=== PATIENT | male | born 1950 | race Caucasian/White ===

== ENCOUNTER → 2018-04-09 10:54 | Outpatient (CLI) | payer MEDICARE, OTHER, SELFPAY | PROVIDERS: Family Provider Physician Assistant; PCP Physician Assistant; Visit Provider Physician Assistant | DX: N30.91 Cystitis, unspecified with hematuria (principal) | CPT/HCPCS: 87086 ==

== ENCOUNTER 2018-06-16 12:24 | Emergency (ER) | payer MEDICARE, OTHER, SELFPAY ==
--- NOTE | 2018-06-16 | DI.RAD.S_ITS ---
PROCEDURE: XR CHEST 1V INDICATIONS: Post Thoracentesis TECHNIQUE: One view of the chest was acquired. COMPARISON: [facility], CR, XR CHEST 2V, 06/16/2018, 12:37. FINDINGS: Surgical changes and devices: Partially visualized bilateral ureteral stents. Lungs and pleura: There is moderate residual left pleural effusion with adjacent atelectasis. Blunting of the right costophrenic angle. Elsewhere in the right lung, no focal consolidation Mediastinum: Mediastinal contours appear normal. Heart size is normal. Bones and chest wall: No suspicious bony lesions. Overlying soft tissues appear unremarkable. IMPRESSION: Moderate residual left pleural effusion. No pneumothorax. Scattered atelectasis. Dictated by: Lloyd Sexton M.D. on 06/16/2018 at 17:50 Approved by: Lloyd Sexton M.D. on 06/16/2018 at 17:52
[2018-06-16 12:26] VITALS: BP 114/70; PULSE 119; RESP 16; TEMP 36.2; O2SAT 93
--- NOTE | 2018-06-16 12:35 | DI.RAD.S_ITS ---
PROCEDURE: XR CHEST 2V INDICATIONS: shortness of breath TECHNIQUE: 2 views of the chest were acquired. COMPARISON: None. FINDINGS: Surgical changes and devices: None. Lungs and pleura: There is a large left pleural effusion. Only the superior aspect of the left lung is aerated. The right lung is clear. Mediastinum: Mediastinal contours are normal. Heart size is normal. Bones and chest wall: No suspicious bony abnormalities. Soft tissues appear unremarkable. IMPRESSION: Large left pleural effusion. Please note, given the patient's history of repeat thoracentesis, Pleurx catheter may be helpful for the patient. This can be scheduled with interventional radiology at [facility] through the diagnostic radiology scheduling line. Dictated by: Padmini Gutierrez M.D. on 06/16/2018 at 12:56 Approved by: Padmini Gutierrez M.D. on 06/16/2018 at 12:57
[2018-06-16 13:43] VITALS: PULSE 122; O2SAT 98
[2018-06-16 14:41] VITALS: BP 137/93
[2018-06-16 15:12] VITALS: BP 110/66; PULSE 111; RESP 15; O2SAT 97
[2018-06-16 15:26] LABS: Add Manual Diff / Slide Review YES; Hematocrit 29.4 % (41-53); Hemoglobin 9.8 g/dL (13.5-17.5); Mean Corpuscular HGB Conc 33.4 % (30-36); Mean Corpuscular Hemoglobin 30.6 PG (26-34); Mean Corpuscular Volume 91.5 fL (80-100); Platelet Count 198 X10^3/uL (150-400); Red Blood Cell Count 3.22 X10^6/uL (4.5-5.9); Red Cell Distribution Width 19.8 % (11.6-14.8); White Blood Cell Count 9.6 X10^3/uL (4.5-11.0)
--- NOTE | 2018-06-16 15:26 | ED.SOB ---
HPI - SOB/Dyspnea General Chief Complaint: Shortness of Breath/Dyspnea Stated Complaint: SHORT OF BREATH Time Seen by Provider: 06/16/18 15:25 Source: patient, family and old records reviewed Mode of arrival: ambulatory Limitations: no limitations History of Present Illness This is a 67-year-old male with known prostate cancer with recurrent pleural effusion patient states that he gets majority of his care through [facility]. Patient has had increasing shortness of breath. He has had thoracentesis 3 or 4 times in the past several months with about 2 or 3 L drained each time and then slow recurrence. Patient denies any fevers. He denies any chest pain or pressure. Denies any abdominal pain. Denies any nausea or vomiting or other GI or urinary symptoms at this time. 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 Patient states he is following with Infectious Disease for this through [facility]. He is taking Zytiga for his cancer. Patient states his shortness of breath has been slowly worsening today was enough that he came in. He actually called to try to make an appointment but they were unable cm until about a week from now. Related Data Home Medications Medication Instructions Recorded Confirmed Honvan 120 mg PO .COMPLEX 04/09/18 06/16/18 abiraterone [Zytiga] 1,000 mg PO DAILY 06/16/18 06/16/18 atorvastatin 80 mg PO BEDTIME 06/16/18 06/16/18 doxycycline monohydrate 100 mg PO DAILY 06/16/18 06/16/18 metformin 500 mg PO BID 06/16/18 06/16/18 oxycodone 5 - 10 mg PO Q4-6H PRN 06/16/18 06/16/18 oxycodone-acetaminophen 1 - 2 tab PO Q4-6H PRN 06/16/18 06/16/18 posaconazole [Noxafil] 100 mg PO TID 06/16/18 06/16/18 prednisone 5 mg PO BID 06/16/18 06/16/18 sennosides-docusate sodium 1 tab PO BID 06/16/18 06/16/18 [Senna-S] tamsulosin 0.4 mg PO DAILY 06/16/18 06/16/18 zolpidem 5 - 10 mg PO BEDTIME PRN 06/16/18 06/16/18 Allergies Allergy/AdvReac Type Severity Reaction Status Date / Time No Known Drug Allergies Allergy Verified 04/09/18 10:42 Review of Systems Review of Systems ROS Unobtainable: All systems reviewed & are unremarkable except as noted in HPI and below Constitutional Denies chills, Reports fatigue, Denies fever(s), Denies lethargy, Reports malaise and Denies weakness Cardiovascular Denies chest pain, Denies irregular heart rhythm, Denies lightheadedness, Denies palpitations, Reports dyspnea, Reports dyspnea on exertion and Denies orthopnea Respiratory Denies system reviewed and no additional complaints, except as docu, Denies chest congestion, Denies cough, Denies pain on inspiration, Denies pain with cough, Reports dyspnea, Reports dyspnea on exertion, Denies stridor and Denies wheezing Gastrointestinal Gastrointestinal: Denies abdominal pain, Denies change in bowel habits, Denies diarrhea, Denies nausea and Denies vomiting Genitourinary Denies hematuria, Denies flank pain, Denies urinary incontinence and Denies urinary urgency Musculoskeletal Reports back pain Neurologic Denies weakness Endocrine Reports fatigue and Denies palpitations Allergic/Immunologic Denies wheezing PFSH Medical History Prostate cancer (Acute) Surgical History S/P ureteral stent placement (Acute) Social History Smoking Status: Never smoker Social History Smoking Status: Never smoker Exam Narrative Exam Narrative: GENERAL: Alert and oriented x three, thin, cachectic-appearing male in moderate distress. HEENT: Head normocephalic, atraumatic, EOMI, pupils reactive, face symmetric, moist mucous membranes NECK: Supple, full range of motion CARDIOVASCULAR: Regular rate and rhythm without murmurs, rubs or gallops. RESPIRATORY: Breath sounds are decreased on the left from the apical area to the base, no wheezes rales or rhonchi. Patient speaks in 3-4 word sentences and is tachypneic with any sort of movement. ABDOMEN: Soft, nontender. Normoactive bowel sounds all 4 quadrants. No guarding or rebound, rigidity, no mass : No CVA tenderness EXTREMITIES: Normal range of motion, no clubbing or edema. Neurovascularly intact NEUROLOGICAL: Cranial nerves II through XII grossly intact. Moving all extremities SKIN: Warm, dry, no petechiae, no rashes or lesions. Initial Vital Signs Initial Vital Signs: Vital Signs Temperature 97.1 F L 06/16/18 12:26 Pulse Rate 119 H 06/16/18 12:26 Respiratory Rate 16 06/16/18 12:26 Blood Pressure 114/70 06/16/18 12:26 Pulse Oximetry 93 06/16/18 12:26 Course Orders Ordered: ED Orders 06/16/18 12:35 Chest [XR chest 2V] Stat 06/16/18 15:00 Complete Blood Count AUTO DIFF Stat Comprehensive Metabolic Panel Stat 06/16/18 15:25 Partial Thromboplastin Time Stat Prothrombin Time INR Stat 06/16/18 15:41 US thoracentesis Stat Vital Signs - 8 hr 06/16/18 12:26 06/16/18 13:43 06/16/18 14:41 Temperature 97.1 F L Pulse Rate 119 H 122 H Respiratory Rate 16 Blood Pressure 114/70 Blood Pressure [Left Arm] 137/93 H Pulse Oximetry 93 98 06/16/18 15:12 06/16/18 18:03 Temperature Pulse Rate 111 H 101 H Respiratory Rate 15 18 Blood Pressure 127/70 Blood Pressure [Left Arm] 110/66 Pulse Oximetry 97 95 MDM - SOB/Dyspnea Lab Data Result diagrams: 06/16/18 15:00 06/16/18 15:00 Lab Results 06/16/18 06/16/18 06/16/18 Range/Units 15:00 15:00 15:25 WBC 9.6 (4.5-11.0) X10^3/uL RBC 3.22 L (4.5-5.9) X10^6/uL Hgb 9.8 L (13.5-17.5) g/dL Hct 29.4 L (41-53) % MCV 91.5 (80-100) fL MCH 30.6 (26-34) PG MCHC 33.4 (30-36) % RDW 19.8 H (11.6-14.8) % Plt Count 198 (150-400) X10^3/uL Neut % (Auto) Not Reportable Lymph % (Auto) Not Reportable [place] % (Auto) Not Reportable Eos % (Auto) Not Reportable Baso % (Auto) Not Reportable Lymph # (Auto) Not Reportable [place] # (Auto) Not Reportable Baso # (Auto) Not Reportable Total Counted 100 Seg Neutrophils % 51.0 (38-70) % Band Neutrophils % 3.0 (3-7) % Lymphocytes % (Manual) 35.0 (25-45) % Atypical Lymphs % 4.0 H ( - 0) % Monocytes % (Manual) 6.0 (2-11) % Basophils % (Manual) 1.0 (0-1) % Neutrophils # (Manual) 5184 ([id number]) /uL Nucleated RBCs 3 H ( - 0) #/Diff RBC Morphology See below Polychromasia 2+ H Poikilocytosis 1+ H Anisocytosis 2+ H PT 11.6 (10.1-12.7) SECONDS INR 1.0 (0.9-1.3) APTT 27 (26.4-36.2) SECONDS Sodium 134 L (137-145) mmol/L Potassium 4.2 (3.4-5.1) mmol/L Chloride 104 (98-107) mmol/L Carbon Dioxide 21 L (22-32) mmol/L BUN 30 H (9-20) mg/dL Creatinine 1.00 (0.66-1.25) mg/dL Estimated GFR > 60.0 (>60) mL/min BUN/Creatinine Ratio 30.0 H (6-22) Glucose 114 H (80-110) mg/dL Calcium 8.4 (8.4-10.2) mg/dL Total Bilirubin 0.6 (0.2-1.3) mg/dL AST 58 (17-59) IU/L ALT 24 (21-72) IU/L Alkaline Phosphatase 245 H (38-126) U/L Total Protein 6.9 (6.3-8.2) g/dL Albumin 3.3 L (3.5-5.0) g/dL Globulin 3.6 (1.7-4.1) g/dL Albumin/Globulin Ratio 0.9 L (1.0-2.8) Imaging Data Chest x-ray: My impression: [address] [address] XRay Report Signed Patient: Elias Berg FMR#: [id number] : 1950Acct:[id number] Age/Sex: 67 / MDate of Service: 06/16/18 Loc: ED Accession Number: [id number] Procedure: XR chest 1V Ordering Provider: Elle Kwan D.O. PROCEDURE: XR CHEST 1V INDICATIONS: Post Thoracentesis TECHNIQUE: One view of the chest was acquired. COMPARISON: [facility], , XR CHEST 2V, 06/16/2018, 12:37. FINDINGS: Surgical changes and devices: Partially visualized bilateral ureteral stents. Lungs and pleura: There is moderate residual left pleural effusion with adjacent atelectasis. Blunting of the right costophrenic angle. Elsewhere in the right lung, no focal consolidation Mediastinum: Mediastinal contours appear normal. Heart size is normal. Bones and chest wall: No suspicious bony lesions. Overlying soft tissues appear unremarkable. IMPRESSION: Moderate residual left pleural effusion. No pneumothorax. Scattered atelectasis. Dictated by: Lloyd Sexton M.D. on 06/16/2018 at 17:50 Approved by: Lloyd Sexton M.D. on 06/16/2018 at 17:52 Radiologist's impression: [place] [address] XRay Report Signed Patient: Elias Berg FMR#: [id number] : 1950Acct:[id number] Age/Sex: 67 / MDate of Service: 06/16/18 Loc: ED Accession Number: [id number] Procedure: XR chest 2V Ordering Provider: Elle Kwan D.O. PROCEDURE: XR CHEST 2V INDICATIONS: shortness of breath TECHNIQUE: 2 views of the chest were acquired. COMPARISON: None. FINDINGS: Surgical changes and devices: None. Lungs and pleura: There is a large left pleural effusion. Only the superior aspect of the left lung is aerated. The right lung is clear. Mediastinum: Mediastinal contours are normal. Heart size is normal. Bones and chest wall: No suspicious bony abnormalities. Soft tissues appear unremarkable. IMPRESSION: Large left pleural effusion. Please note, given the patient's history of repeat thoracentesis, Pleurx catheter may be helpful for the patient. This can be scheduled with interventional radiology at [facility] through the diagnostic radiology scheduling line. Dictated by: Padmini Gutierrez M.D. on 06/16/2018 at 12:56 Approved by: Padmini Gutierrez M.D. on 06/16/2018 at 12:57 US guided thoracentesis: Radiologist's impression: [address] [address] Ultrasound Report Signed Patient: Elias Berg FMR#: [id number] : 1950Acct:[id number] Age/Sex: 67 / MDate of Service: 06/16/18 Loc: ED Accession Number: [id number] Procedure: US thoracentesis Ordering Provider: Elle Kwan D.O. PROCEDURE: US THORACENTESIS INDICATIONS: LEFT PLEURAL EFFUSION, SOB, PROSTATE CA TECHNIQUE: The indications, alternatives, benefits, risks, and complications of the procedure were explained to the patient. Written informed consent was obtained and placed in the chart. The chest was examined sonographically, and an appropriate site was chosen for thoracentesis. The skin was prepared and draped in the usual sterile fashion, and 1% lidocaine was infiltrated from the skin down through the pleural surface. A 19-gauge catheter-covered needle was then introduced into the pleural space, the catheter was advanced and the needle was withdrawn, and thereafter pleural fluid was aspirated. The catheter was then removed and a dressing was applied. COMPARISON: None. FINDINGS: Access site: Left hemithorax. Needle: One-Step centesis catheter with introducer needle. Fluid volume and description: 2000 cc of serous fluid Fluid sent for diagnostic testing: Not requested Medications: 1% lidocaine for local anaesthesia. Complications: None; post-procedural chest radiograph is pending to assess for pneumothorax. IMPRESSION: Successful ultrasound-guided thoracentesis. Dictated by: Lloyd Sexton M.D. on 06/16/2018 at 17:53 Approved by: Lloyd Sxeton M.D. on 06/16/2018 at 17:53 [facility] Narrative Medical decision making narrative: Spoke with Dr. Sexton who is available for ultrasound-guided thoracentesis. Patient is very familiar with the procedure. Afterwards chest x-ray was obtained and shows improvement although continued large pleural effusion. Patient does not show signs of pneumothorax. Patient is improved his breathing and comfortable returning home at this time. Dr. Gutierrez from Radiology did mention PleurX catheter may be helpful for this patient and was expressed to him as an option and likely available through [facility]. Discharge Plan Departure Patient Disposition: Home Clinical Impression: Pleural effusion Discharge Date/Time: 06/16/18 18:04 Interventions: ED Discharge Assessment Last Done: 06/16/18 18:03 Instructions: DI for Thoracentesis Activity Restrictions/Additional Instructions: Follow up with your physician at [facility] for recheck. Call for an appointment if you do not have one this week. Continue your home medications as prescribed. I recommend that you follow up and discuss with your providers about a pleurx catheter, or a catheter that constantly drains the lung. This may be an option, either through at [facility] or possibly through [facility]. Return to the ER for fevers greater than 100.4, new shortness of breath, passing out, new chest pain or pressure, persistent vomiting or other new or concerning symptoms. Prescriptions: No Action Honvan tablet 120 mg PO .COMPLEX RF: 0 atorvastatin 40 mg tablet 80 mg PO BEDTIME RF: 0 metformin 500 mg tablet 500 mg PO BID RF: 0 doxycycline monohydrate 100 mg tablet 100 mg PO DAILY RF: 0 Noxafil 100 mg tablet,delayed release (DR/EC) 100 mg PO TID RF: 0 sennosides-docusate sodium [Senna-S] 8.6-50 mg tablet 1 tab PO BID RF: 0 prednisone 5 mg tablet 5 mg PO BID RF: 0 oxycodone-acetaminophen 5-325 mg tablet 1 - 2 tab PO Q4-6H PRN (Reason: pain) RF: 0 tamsulosin 0.4 mg capsule 0.4 mg PO DAILY RF: 0 zolpidem 10 mg tablet 5 - 10 mg PO BEDTIME PRN (Reason: Insomnia) RF: 0 oxycodone 5 mg tablet 5 - 10 mg PO Q4-6H PRN (Reason: pain) RF: 0 abiraterone [Zytiga] 250 mg tablet 1,000 mg PO DAILY RF: 0 Referrals: Juanita Garza PA-C [Primary Care Provider] -
[2018-06-16 15:31] LABS: Alanine Aminotransferase 24 IU/L (21-72); Albumin 3.3 g/dL (3.5-5.0); Albumin Globulin Ratio 0.9 (1.0-2.8); Alkaline Phosphatase 245 U/L (38-126); Aspartate Aminotransferase 58 IU/L (17-59); Bilirubin Total 0.6 mg/dL (0.2-1.3); Blood Urea Nitrogen 30 mg/dL (9-20); Calcium 8.4 mg/dL (8.4-10.2); Carbon Dioxide 21 mmol/L (22-32); Chloride 104 mmol/L (98-107); Estimated Glomerular Filt Rate > 60.0 mL/min (>60); Globulin 3.6 g/dL (1.7-4.1); Glucose 114 mg/dL (80-110); HEMOLYSIS < 15 (0-50); Potassium 4.2 mmol/L (3.4-5.1); Sodium 134 mmol/L (137-145); Total Protein 6.9 g/dL (6.3-8.2)
[2018-06-16 15:34] LABS: Neutrophils Absolute Manual 5184 /uL (3000-5900); Nucleated Red Blood Cells 3 #/Diff; Total Cells Counted 100
[2018-06-16 15:36] LABS: Anisocytosis 2+; Poikilocytosis 1+; Polychromasia 2+
[2018-06-16 15:41] LABS: Prothrombin Time 11.6 SECONDS (10.1-12.7)
--- NOTE | 2018-06-16 15:41 | DI.US.S_ITS ---
PROCEDURE: US THORACENTESIS INDICATIONS: LEFT PLEURAL EFFUSION, SOB, PROSTATE CA TECHNIQUE: The indications, alternatives, benefits, risks, and complications of the procedure were explained to the patient. Written informed consent was obtained and placed in the chart. The chest was examined sonographically, and an appropriate site was chosen for thoracentesis. The skin was prepared and draped in the usual sterile fashion, and 1% lidocaine was infiltrated from the skin down through the pleural surface. A 19-gauge catheter-covered needle was then introduced into the pleural space, the catheter was advanced and the needle was withdrawn, and thereafter pleural fluid was aspirated. The catheter was then removed and a dressing was applied. COMPARISON: None. FINDINGS: Access site: Left hemithorax. Needle: One-Step centesis catheter with introducer needle. Fluid volume and description: 2000 cc of serous fluid Fluid sent for diagnostic testing: Not requested Medications: 1% lidocaine for local anaesthesia. Complications: None; post-procedural chest radiograph is pending to assess for pneumothorax. IMPRESSION: Successful ultrasound-guided thoracentesis. Dictated by: Lloyd Sexton M.D. on 06/16/2018 at 17:53 Approved by: Lloyd Sexton M.D. on 06/16/2018 at 17:53
[2018-06-16 15:44] LABS: PTT Partial Thromboplastin Tim 27 SECONDS (26.4-36.2)
[2018-06-16 18:03] VITALS: BP 127/70; PULSE 101; RESP 18; O2SAT 95
== END 2018-06-16 18:04 | disposition home or self-care (01) ==
PROVIDERS: Emergency Provider Emergency Medicine; Family Provider Physician Assistant; PCP Physician Assistant
DX: J90 Pleural effusion, not elsewhere classified (principal)
CPT/HCPCS: 32555; 36415; 36591; 71045; 71046; 80053; 85025; 85610; 85730; 99283; 99284

== ENCOUNTER 2018-06-22 12:53 | Emergency (ER) | payer MEDICARE, OTHER, SELFPAY ==
--- NOTE | 2018-06-22 | DI.RAD.S_ITS ---
PROCEDURE: XR CHEST 1V INDICATIONS: POST THORACENTESIS TECHNIQUE: One view of the chest was acquired. COMPARISON: [facility], CR, XR CHEST 2V, 06/22/2018, 14:30. FINDINGS: Surgical changes and devices: None. Lungs and pleura: Moderate left basilar airspace opacity. Increased, moderate right basilar airspace opacity. No pneumothorax. Decreased, moderate left pleural effusion. Mediastinum: Mediastinal contours appear normal. Heart size is normal. Bones and chest wall: No suspicious bony lesions. Overlying soft tissues appear unremarkable. IMPRESSION: 1. No complication following left-sided thoracentesis. 2. Bibasilar pneumonia. Continued plain film surveillance is recommended to ensure resolution, and to exclude underlying or central malignancy. Dictated by: Yolanda Bronson M.D. on 06/22/2018 at 16:15 Approved by: Yolanda Bronson M.D. on 06/22/2018 at 16:16
[2018-06-22 13:01] VITALS: BP 123/75; PULSE 117; RESP 20; TEMP 36.6; O2SAT 96
--- NOTE | 2018-06-22 14:26 | DI.RAD.S_ITS ---
PROCEDURE: XR CHEST 2V INDICATIONS: shortness of breath TECHNIQUE: 2 views of the chest were acquired. COMPARISON: [facility], CR, XR CHEST 1V, 06/16/2018, 17:39. FINDINGS: Surgical changes and devices: None. Lungs and pleura: Moderate left-sided pleural effusion and left lung atelectasis/infiltrate is seen. No gross pneumothorax. Right lung is clear. Mediastinum: Mediastinal contours are normal. Heart size is normal. Bones and chest wall: No suspicious bony abnormalities. Soft tissues appear unremarkable. IMPRESSION: Moderate left pleural effusion and left lung infiltrate/atelectasis, increased since previous study. No gross pneumothorax. Dictated by: Jesse Aguila M.D. on 06/22/2018 at 15:06 Approved by: Jesse Aguila M.D. on 06/22/2018 at 15:07
[2018-06-22 14:39] LABS: Add Manual Diff / Slide Review NO; Basophils Absolute Auto 100 /uL (0-100); Basophils Percent Auto 1.5 % (0-2); Eosinophils Absolute Auto 0 /uL (0-450); Eosinophils Percent Auto 0.3 % (2-4); Hematocrit 26.3 % (41-53); Hemoglobin 8.9 g/dL (13.5-17.5); Lymphocytes Absolute Auto 1900 /uL (1100-4500); Lymphocytes Percent Auto 21.1 % (25-40); Mean Corpuscular HGB Conc 33.8 % (30-36); Mean Corpuscular Hemoglobin 31.4 PG (26-34); Mean Corpuscular Volume 92.8 fL (80-100); Monocytes Absolute Auto 400 /uL (0-900); Monocytes Percent Auto 4.1 % (3-14); Neutrophils Absolute Auto 6500 /uL (1500-7000); Platelet Count 171 X10^3/uL (150-400); Red Blood Cell Count 2.83 X10^6/uL (4.5-5.9); Red Cell Distribution Width 20.4 % (11.6-14.8); White Blood Cell Count 8.9 X10^3/uL (4.5-11.0)
[2018-06-22 14:47] LABS: Alanine Aminotransferase 25 IU/L (21-72); Albumin Globulin Ratio 0.9 (1.0-2.8); Alkaline Phosphatase 297 U/L (38-126); Anisocytosis 2+; Aspartate Aminotransferase 44 IU/L (17-59); Bilirubin Total 0.5 mg/dL (0.2-1.3); Blood Urea Nitrogen 27 mg/dL (9-20); Calcium 8.1 mg/dL (8.4-10.2); Carbon Dioxide 21 mmol/L (22-32); Chloride 105 mmol/L (98-107); Estimated Glomerular Filt Rate > 60.0 mL/min (>60); Globulin 3.4 g/dL (1.7-4.1); Glucose 116 mg/dL (80-110); HEMOLYSIS < 15 (0-50); Lactate (Lactic Acid) 1.3 mmol/L (0.7-2.1); Poikilocytosis 1+; Potassium 4.1 mmol/L (3.4-5.1); Sodium 133 mmol/L (137-145); Total Protein 6.4 g/dL (6.3-8.2)
--- NOTE | 2018-06-22 14:51 | ED.SOB ---
HPI - SOB/Dyspnea General Chief Complaint: Shortness of Breath/Dyspnea Stated Complaint: DIFFICULTY BREATHING Time Seen by Provider: 06/22/18 14:50 Source: patient and family Mode of arrival: wheelchair Limitations: no limitations History of Present Illness 67-year-old male nonsmoker with history of prostate cancer and large left-sided pleural effusion presents with multiple family members and a chief complaint of significant shortness of breath and the suspicion that his effusion has returned. He has increasing frequency of thoracentesis with the last 1 being on Tuesday. He denies fever or chills nor productive cough but increasing shortness of breath with any exertion. he is not dizzy but he is a bit weak and lightheaded. MD Complaint: shortness of breath Onset (ago): day(s) Severity: severe Consistency/Duration: constant Relieving factors: nothing Exacerbating factors: lying flat and exertion Associated symptoms: denies other symptoms Treatment prior to arrival: none Related Data Home Medications Medication Instructions Recorded Confirmed Honvan 120 mg PO .COMPLEX 04/09/18 06/22/18 abiraterone [Zytiga] 1,000 mg PO DAILY 06/16/18 06/22/18 doxycycline monohydrate 100 mg PO DAILY 06/16/18 06/22/18 posaconazole [Noxafil] 100 mg PO TID 06/16/18 06/22/18 prednisone 10 mg PO DAILY 06/16/18 06/22/18 sennosides-docusate sodium 1 tab PO BID 06/16/18 06/22/18 [Senna-S] tamsulosin 0.4 mg PO DAILY 06/16/18 06/22/18 morphine 15 mg PO BID PRN 06/22/18 06/22/18 Previous Rx's Medication Instructions Recorded amoxicillin-pot clavulanate 1 tab PO BID #20 tab 06/22/18 [Augmentin] Allergies Allergy/AdvReac Type Severity Reaction Status Date / Time No Known Drug Allergies Allergy Verified 06/22/18 13:01 Review of Systems Constitutional Denies chills, Reports fatigue, Denies fever(s), Denies lethargy, Reports poor appetite and Reports weakness Eyes Denies change in vision, Denies eye discharge, Denies irritation and Denies loss of vision ENT Ears, Nose, Mouth, and Throat: Denies change in voice, Denies neck pain and Denies sore throat Cardiovascular Denies chest pain, Denies irregular heart rhythm, Denies lightheadedness, Denies palpitations, Reports dyspnea, Reports dyspnea on exertion and Denies orthopnea Respiratory Denies cough, Reports dyspnea, Reports dyspnea on exertion and Denies wheezing Gastrointestinal Gastrointestinal: Denies abdominal pain, Denies change in bowel habits, Denies diarrhea, Denies nausea and Denies vomiting Genitourinary Denies hematuria, Denies flank pain, Denies urinary incontinence and Denies urinary urgency Musculoskeletal Denies neck pain Integumentary/Breasts Denies pruritus, Denies erythema, Denies rash and Denies wounds Neurologic Denies confusion, Denies loss of vision and Reports weakness Psychiatric Denies anxiety, Denies confusion, Denies depression, Denies homicidal ideation and Denies suicidal ideation Endocrine Reports fatigue and Denies palpitations Hematologic/Lymphatic Denies easy bruising Allergic/Immunologic Denies wheezing PFSH Medical History Prostate cancer (Acute) Surgical History S/P ureteral stent placement (Acute) Social History Smoking Status: Never smoker Social History Smoking Status: Never smoker Exam Narrative Exam Narrative: GENERAL: 59-year-old male, appears older than stated age, chronically ill and in acute distress HEAD: Atraumatic. Normocephalic. No temporal or scalp tenderness. temporal wasting EYES: Pupils equal round and reactive. Extraocular motions intact. No scleral icterus. No injection or drainage. ENT: Nose without bleeding, purulent drainage or septal hematoma. Throat without erythema, tonsillar hypertrophy or exudate. Uvula midline. Airway patent. NECK: Trachea midline. No JVD or lymphadenopathy. Supple, nontender, no meningeal signs. CARDIOVASCULAR: Regular rate and rhythm without murmurs, gallops, or rubs. RESPIRATORY: decreased breath sounds to left mid lung GASTROINTESTINAL: Abdomen soft, non-tender, nondistended. No hepato-splenomegaly, or palpable masses. No guarding. EXTREMITIES: No clubbing, cyanosis, or edema. No joint tenderness, effusion, or edema noted. BACK: Nontender without deformity or crepitance. No flank tenderness. NEURO: AOx3. SKIN: No rash or erythema. Initial Vital Signs Initial Vital Signs: Vital Signs Temperature 97.8 F 06/22/18 13:01 Pulse Rate 117 H 06/22/18 13:01 Respiratory Rate 20 06/22/18 13:01 Blood Pressure 123/75 06/22/18 13:01 Pulse Oximetry 96 06/22/18 13:01 Course Orders Ordered: ED Orders 06/22/18 14:26 Consult to Respiratory Therapy Evaluate & Treat XR chest 2V Stat EKG-12 Lead Stat 06/22/18 14:29 Complete Blood Count AUTO DIFF Stat Comprehensive Metabolic Panel Stat Lactate (Lactic Acid) Stat 06/22/18 14:58 US thoracentesis Stat Reevaluation(s) Reevaluation #1: patient feels near complete resolution of symptoms upon return from radiology. Repeat chest x-ray confirms no pneumothorax or other complication of the procedure Vital Signs - 8 hr 06/22/18 13:01 06/22/18 15:00 06/22/18 16:05 Temperature 97.8 F Pulse Rate 117 H 90 102 H Respiratory Rate 20 22 22 Blood Pressure 123/75 Blood Pressure [Left Arm] 130/69 130/69 Pulse Oximetry 96 95 95 06/22/18 17:15 06/22/18 18:00 Temperature Pulse Rate 98 H 93 H Respiratory Rate 20 20 Blood Pressure Blood Pressure [Left Arm] 128/64 138/63 Pulse Oximetry 98 95 MDM - SOB/Dyspnea Medical Records Attestation: I reviewed the patient's medical records. Lab Data Attestation: I reviewed the patient's lab results. Result diagrams: 06/22/18 14:29 06/22/18 14:29 Lab Results 06/22/18 06/22/18 06/22/18 Range/Units 14:29 14:29 14:29 WBC 8.9 (4.5-11.0) X10^3/uL RBC 2.83 L (4.5-5.9) X10^6/uL Hgb 8.9 L (13.5-17.5) g/dL Hct 26.3 L (41-53) % MCV 92.8 (80-100) fL MCH 31.4 (26-34) PG MCHC 33.8 (30-36) % RDW 20.4 H (11.6-14.8) % Plt Count 171 (150-400) X10^3/uL Neut % (Auto) 73.0 (50-75) % Lymph % (Auto) 21.1 L (25-40) % Bracken % (Auto) 4.1 (3-14) % Eos % (Auto) 0.3 L (2-4) % Baso % (Auto) 1.5 (0-2) % Neut # (Auto) 6500 (3730-0141) /uL Lymph # (Auto) 1900 (7639-5910) /uL Bracken # (Auto) 400 (0-900) /uL Eos # (Auto) 0 (0-450) /uL Baso # (Auto) 100 (0-100) /uL RBC Morphology Not Reportable Poikilocytosis 1+ H Anisocytosis 2+ H Sodium 133 L (137-145) mmol/L Potassium 4.1 (3.4-5.1) mmol/L Chloride 105 (98-107) mmol/L Carbon Dioxide 21 L (22-32) mmol/L BUN 27 H (9-20) mg/dL Creatinine 0.90 (0.66-1.25) mg/dL Estimated GFR > 60.0 (>60) mL/min BUN/Creatinine Ratio 30.0 H (6-22) Glucose 116 H (80-110) mg/dL Lactate 1.3 (0.7-2.1) mmol/L Calcium 8.1 L (8.4-10.2) mg/dL Total Bilirubin 0.5 (0.2-1.3) mg/dL AST 44 (17-59) IU/L ALT 25 (21-72) IU/L Alkaline Phosphatase 297 H (38-126) U/L Total Protein 6.4 (6.3-8.2) g/dL Albumin 3.0 L (3.5-5.0) g/dL Globulin 3.4 (1.7-4.1) g/dL Albumin/Globulin Ratio 0.9 L (1.0-2.8) Imaging Data Chest x-ray: Radiologist's impression: [address] [address] XRay Report Signed Patient: Elias Berg FMR#: [id number] : 1950Acct:[id number] Age/Sex: 67 / MDate of Service: 06/22/18 Loc: ED Accession Number: [id number] Procedure: XR chest 2V Ordering Provider: Kg Mcgee D.O. PROCEDURE: XR CHEST 2V INDICATIONS: shortness of breath TECHNIQUE: 2 views of the chest were acquired. COMPARISON: [facility], CR, XR CHEST 1V, 06/16/2018, 17:39. FINDINGS: Surgical changes and devices: None. Lungs and pleura: Moderate left-sided pleural effusion and left lung atelectasis/infiltrate is seen. No gross pneumothorax. Right lung is clear. Mediastinum: Mediastinal contours are normal. Heart size is normal. Bones and chest wall: No suspicious bony abnormalities. Soft tissues appear unremarkable. IMPRESSION: Moderate left pleural effusion and left lung infiltrate/atelectasis, increased since previous study. No gross pneumothorax. Dictated by: Jesse Aguila M.D. on 06/22/2018 at 15:06 Approved by: Jesse Aguila M.D. on 06/22/2018 at 15:07 Chest US: Radiologist's impression: Elias Berg 67 M 1950 [place] [address] Ultrasound Report Signed Patient: Elias Berg FMR#: [id number] : 1950Acct:[id number] Age/Sex: 67 / MDate of Service: 06/16/18 Loc: ED Accession Number: [id number] Procedure: US thoracentesis Ordering Provider: Elle Kwan D.O. PROCEDURE: US THORACENTESIS INDICATIONS: LEFT PLEURAL EFFUSION, SOB, PROSTATE CA TECHNIQUE: The indications, alternatives, benefits, risks, and complications of the procedure were explained to the patient. Written informed consent was obtained and placed in the chart. The chest was examined sonographically, and an appropriate site was chosen for thoracentesis. The skin was prepared and draped in the usual sterile fashion, and 1% lidocaine was infiltrated from the skin down through the pleural surface. A 19-gauge catheter-covered needle was then introduced into the pleural space, the catheter was advanced and the needle was withdrawn, and thereafter pleural fluid was aspirated. The catheter was then removed and a dressing was applied. COMPARISON: None. FINDINGS: Access site: Left hemithorax. Needle: One-Step centesis catheter with introducer needle. Fluid volume and description: 2000 cc of serous fluid Fluid sent for diagnostic testing: Not requested Medications: 1% lidocaine for local anaesthesia. Complications: None; post-procedural chest radiograph is pending to assess for pneumothorax. IMPRESSION: Successful ultrasound-guided thoracentesis. Dictated by: Lloyd Sexton M.D. on 06/16/2018 at 17:53 Approved by: Lloyd Sexton M.D. on 06/16/2018 at 17:53 [facility] Narrative Medical decision making narrative: patient feels tremendous relief in the aftermath of his ultrasound-guided thoracentesis as performed by Radiology. Follow-up chest x-ray suggest bibasilar pneumonia and as the result patient is given antibiotics for this. He is encouraged to follow up closely with his providers and even perhaps discuss the possibility of a drain being placed at a facility with interventional radiology Discharge Plan Departure Patient Disposition: Home Clinical Impression: Pleural effusion Community acquired pneumonia Qualifiers: Laterality: right Lung location: lower lobe of lung Qualified Code(s): J18.1 - Lobar pneumonia, unspecified organism Discharge Date/Time: 06/22/18 18:30 Interventions: ED Discharge Assessment Last Done: 06/22/18 18:45 Instructions: DI for Pneumonia -- Adult, DI for Pleural Effusion Activity Restrictions/Additional Instructions: *You have been diagnosed with [ large left pleural effusion, lower lobe pneumonia *What to do: *Take medications as directed: Her prescription has been electronically transmitted to [facility] in [place] a your request *Follow up with your primary care provider in 2-3 days, call for an appointment. Let them know you were seen in the Emergency Department and that we ask that you be seen in follow up *Return to ER if you should have any new, worsening or concerning symptoms Prescriptions: New amoxicillin-pot clavulanate [Augmentin] 875-125 mg tablet 1 tab PO BID Qty: 20 RF: 0 No Action Honvan tablet 120 mg PO .COMPLEX RF: 0 doxycycline monohydrate 100 mg tablet 100 mg PO DAILY RF: 0 Noxafil 100 mg tablet,delayed release (DR/EC) 100 mg PO TID RF: 0 sennosides-docusate sodium [Senna-S] 8.6-50 mg tablet 1 tab PO BID RF: 0 prednisone 5 mg tablet 10 mg PO DAILY RF: 0 tamsulosin 0.4 mg capsule 0.4 mg PO DAILY RF: 0 abiraterone [Zytiga] 250 mg tablet 1,000 mg PO DAILY RF: 0 morphine 15 mg tablet extended release 15 mg PO BID PRN (Reason: PAIN) RF: 0
--- NOTE | 2018-06-22 14:58 | DI.US.S_ITS ---
PROCEDURE: US THORACENTESIS INDICATIONS: SOB, RECURRENT LEFT PLEURAL EFFUSION, LAST TAP ON TUESDAY TECHNIQUE: The indications, alternatives, benefits, risks, and complications of the procedure were explained to the patient. Written informed consent was obtained and placed in the chart. The chest was examined sonographically, and an appropriate site was chosen for thoracentesis. The skin was prepared and draped in the usual sterile fashion, and 1% lidocaine was infiltrated from the skin down through the pleural surface. A 19-gauge catheter-covered needle was then introduced into the pleural space, the catheter was advanced and the needle was withdrawn, and thereafter pleural fluid was aspirated. The catheter was then removed and a dressing was applied. COMPARISON: [facility], CR, XR CHEST 2V, 06/22/2018, 14:30. [facility], CR, XR CHEST 1V, 06/22/2018, 17:02. [facility], US, US THORACENTESIS, 06/16/2018, 16:35. FINDINGS: Access site: Right hemithorax. Needle: One-Step centesis catheter with introducer needle. Fluid volume and description: 2000 mL, clear Fluid sent for diagnostic testing: Not ordered by referring physician. Medications: 1% lidocaine for local anaesthesia. Complications: None; post-procedural chest radiograph is pending to assess for pneumothorax. IMPRESSION: Successful ultrasound-guided thoracentesis. Dictated by: Vicki Swan M.D. on 06/22/2018 at 17:24 Approved by: Vicki Swan M.D. on 06/22/2018 at 17:25
[2018-06-22 15:00] VITALS: BP 130/69; PULSE 90; RESP 22; O2SAT 95
--- NOTE | 2018-06-22 15:09 | PC.NURSE ---
pt has been on a every 2 weeks to have thoracentisis. pt feeling sob and like he need another. last time was tuesday.
[2018-06-22 16:05] VITALS: BP 130/69; PULSE 102; RESP 22; O2SAT 95
[2018-06-22 17:15] VITALS: BP 128/64; PULSE 98; RESP 20; O2SAT 98
[2018-06-22 18:00] VITALS: BP 138/63; PULSE 93; RESP 20; O2SAT 95
--- NOTE | 2018-06-22 19:54 | ED_ITS ---
HPI - SOB/Dyspnea General Chief Complaint: Shortness of Breath/Dyspnea Stated Complaint: DIFFICULTY BREATHING Time Seen by Provider: 06/22/18 14:50 Source: patient and family Mode of arrival: wheelchair Limitations: no limitations History of Present Illness 67-year-old male nonsmoker with history of prostate cancer and large left-sided pleural effusion presents with multiple family members and a chief complaint of significant shortness of breath and the suspicion that his effusion has returned. He has increasing frequency of thoracentesis with the last 1 being on Tuesday. He denies fever or chills nor productive cough but increasing shortness of breath with any exertion. he is not dizzy but he is a bit weak and lightheaded. MD Complaint: shortness of breath Onset (ago): day(s) Severity: severe Consistency/Duration: constant Relieving factors: nothing Exacerbating factors: lying flat and exertion Associated symptoms: denies other symptoms Treatment prior to arrival: none Related Data Home Medications Medication Instructions Recorded Confirmed Honvan 120 mg PO .COMPLEX 04/09/18 06/22/18 abiraterone [Zytiga] 1,000 mg PO DAILY 06/16/18 06/22/18 doxycycline monohydrate 100 mg PO DAILY 06/16/18 06/22/18 posaconazole [Noxafil] 100 mg PO TID 06/16/18 06/22/18 prednisone 10 mg PO DAILY 06/16/18 06/22/18 sennosides-docusate sodium 1 tab PO BID 06/16/18 06/22/18 [Senna-S] tamsulosin 0.4 mg PO DAILY 06/16/18 06/22/18 morphine 15 mg PO BID PRN 06/22/18 06/22/18 Previous Rx's Medication Instructions Recorded amoxicillin-pot clavulanate 1 tab PO BID #20 tab 06/22/18 [Augmentin] Allergies Allergy/AdvReac Type Severity Reaction Status Date / Time No Known Drug Allergies Allergy Verified 06/22/18 13:01 Review of Systems Constitutional Denies chills, Reports fatigue, Denies fever(s), Denies lethargy, Reports poor appetite and Reports weakness Eyes Denies change in vision, Denies eye discharge, Denies irritation and Denies loss of vision ENT Ears, Nose, Mouth, and Throat: Denies change in voice, Denies neck pain and Denies sore throat Cardiovascular Denies chest pain, Denies irregular heart rhythm, Denies lightheadedness, Denies palpitations, Reports dyspnea, Reports dyspnea on exertion and Denies orthopnea Respiratory Denies cough, Reports dyspnea, Reports dyspnea on exertion and Denies wheezing Gastrointestinal Gastrointestinal: Denies abdominal pain, Denies change in bowel habits, Denies diarrhea, Denies nausea and Denies vomiting Genitourinary Denies hematuria, Denies flank pain, Denies urinary incontinence and Denies urinary urgency Musculoskeletal Denies neck pain Integumentary/Breasts Denies pruritus, Denies erythema, Denies rash and Denies wounds Neurologic Denies confusion, Denies loss of vision and Reports weakness Psychiatric Denies anxiety, Denies confusion, Denies depression, Denies homicidal ideation and Denies suicidal ideation Endocrine Reports fatigue and Denies palpitations Hematologic/Lymphatic Denies easy bruising Allergic/Immunologic Denies wheezing PFSH Medical History Prostate cancer (Acute) Surgical History S/P ureteral stent placement (Acute) Social History Smoking Status: Never smoker Social History Smoking Status: Never smoker Exam Narrative Exam Narrative: GENERAL: 59-year-old male, appears older than stated age, chronically ill and in acute distress HEAD: Atraumatic. Normocephalic. No temporal or scalp tenderness. temporal wasting EYES: Pupils equal round and reactive. Extraocular motions intact. No scleral icterus. No injection or drainage. ENT: Nose without bleeding, purulent drainage or septal hematoma. Throat without erythema, tonsillar hypertrophy or exudate. Uvula midline. Airway patent. NECK: Trachea midline. No JVD or lymphadenopathy. Supple, nontender, no meningeal signs. CARDIOVASCULAR: Regular rate and rhythm without murmurs, gallops, or rubs. RESPIRATORY: decreased breath sounds to left mid lung GASTROINTESTINAL: Abdomen soft, non-tender, nondistended. No hepato- splenomegaly, or palpable masses. No guarding. EXTREMITIES: No clubbing, cyanosis, or edema. No joint tenderness, effusion, or edema noted. BACK: Nontender without deformity or crepitance. No flank tenderness. NEURO: AOx3. SKIN: No rash or erythema. Initial Vital Signs Initial Vital Signs: Vital Signs Temperature 97.8 F 06/22/18 13:01 Pulse Rate 117 H 06/22/18 13:01 Respiratory Rate 20 06/22/18 13:01 Blood Pressure 123/75 06/22/18 13:01 Pulse Oximetry 96 06/22/18 13:01 Course Orders Ordered: ED Orders 06/22/18 14:26 Consult to Respiratory Therapy Evaluate & Treat XR chest 2V Stat EKG-12 Lead Stat 06/22/18 14:29 Complete Blood Count AUTO DIFF Stat Comprehensive Metabolic Panel Stat Lactate (Lactic Acid) Stat 06/22/18 14:58 US thoracentesis Stat Reevaluation(s) Reevaluation #1: patient feels near complete resolution of symptoms upon return from radiology. Repeat chest x-ray confirms no pneumothorax or other complication of the procedure Vital Signs - 8 hr 06/22/18 13:01 06/22/18 15:00 06/22/18 16:05 Temperature 97.8 F Pulse Rate 117 H 90 102 H Respiratory Rate 20 22 22 Blood Pressure 123/75 Blood Pressure [Left Arm] 130/69 130/69 Pulse Oximetry 96 95 95 06/22/18 17:15 06/22/18 18:00 Temperature Pulse Rate 98 H 93 H Respiratory Rate 20 20 Blood Pressure Blood Pressure [Left Arm] 128/64 138/63 Pulse Oximetry 98 95 MDM - SOB/Dyspnea Medical Records Attestation: I reviewed the patient's medical records. Lab Data Attestation: I reviewed the patient's lab results. Result diagrams: 06/22/18 14:29 06/22/18 14:29 Lab Results 06/22/18 06/22/18 06/22/18 Range/Units 14:29 14:29 14:29 WBC 8.9 (4.5-11.0) X10^3/uL RBC 2.83 L (4.5-5.9) X10^6/uL Hgb 8.9 L (13.5-17.5) g/dL Hct 26.3 L (41-53) % MCV 92.8 (80-100) fL MCH 31.4 (26-34) PG MCHC 33.8 (30-36) % RDW 20.4 H (11.6-14.8) % Plt Count 171 (150-400) X10^3/uL Neut % (Auto) 73.0 (50-75) % Lymph % (Auto) 21.1 L (25-40) % Piute % (Auto) 4.1 (3-14) % Eos % (Auto) 0.3 L (2-4) % Baso % (Auto) 1.5 (0-2) % Neut # (Auto) 6500 (6268-4580) /uL Lymph # (Auto) 1900 (4047-9780) /uL Piute # (Auto) 400 (0-900) /uL Eos # (Auto) 0 (0-450) /uL Baso # (Auto) 100 (0-100) /uL RBC Morphology Not Reportable Poikilocytosis 1+ H Anisocytosis 2+ H Sodium 133 L (137-145) mmol/L Potassium 4.1 (3.4-5.1) mmol/L Chloride 105 (98-107) mmol/L Carbon Dioxide 21 L (22-32) mmol/L BUN 27 H (9-20) mg/dL Creatinine 0.90 (0.66-1.25) mg/dL Estimated GFR > 60.0 (>60) mL/min BUN/Creatinine Ratio 30.0 H (6-22) Glucose 116 H (80-110) mg/dL Lactate 1.3 (0.7-2.1) mmol/L Calcium 8.1 L (8.4-10.2) mg/dL Total Bilirubin 0.5 (0.2-1.3) mg/dL AST 44 (17-59) IU/L ALT 25 (21-72) IU/L Alkaline Phosphatase 297 H (38-126) U/L Total Protein 6.4 (6.3-8.2) g/dL Albumin 3.0 L (3.5-5.0) g/dL Globulin 3.4 (1.7-4.1) g/dL Albumin/Globulin Ratio 0.9 L (1.0-2.8) Imaging Data Chest x-ray: Radiologist's impression: [address] [address] XRay Report Signed Patient: Elias Berg FMR#: [id number] : 1950Acct:[id number] Age/Sex: 67 / MDate of Service: 06/22/18 Loc: ED Accession Number: [id number] Procedure: XR chest 2V Ordering Provider: Kg Mcgee D.O. PROCEDURE: XR CHEST 2V INDICATIONS: shortness of breath TECHNIQUE: 2 views of the chest were acquired. COMPARISON: [facility], CR, XR CHEST 1V, 06/16/2018, 17:39. FINDINGS: Surgical changes and devices: None. Lungs and pleura: Moderate left-sided pleural effusion and left lung atelectasis/infiltrate is seen. No gross pneumothorax. Right lung is clear. Mediastinum: Mediastinal contours are normal. Heart size is normal. Bones and chest wall: No suspicious bony abnormalities. Soft tissues appear unremarkable. IMPRESSION: Moderate left pleural effusion and left lung infiltrate/atelectasis, increased since previous study. No gross pneumothorax. Dictated by: Jesse Aguila M.D. on 06/22/2018 at 15:06 Approved by: Jesse Aguila M.D. on 06/22/2018 at 15:07 Chest US: Radiologist's impression: Elias Berg 67 M 1950 [place] [address] Ultrasound Report Signed Patient: Elias Berg FMR#: [id number] : 1950Acct:[id number] Age/Sex: 67 / MDate of Service: 06/16/18 Loc: ED Accession Number: [id number] Procedure: US thoracentesis Ordering Provider: Elle Kwan D.O. PROCEDURE: US THORACENTESIS INDICATIONS: LEFT PLEURAL EFFUSION, SOB, PROSTATE CA TECHNIQUE: The indications, alternatives, benefits, risks, and complications of the procedure were explained to the patient. Written informed consent was obtained and placed in the chart. The chest was examined sonographically, and an appropriate site was chosen for thoracentesis. The skin was prepared and draped in the usual sterile fashion, and 1% lidocaine was infiltrated from the skin down through the pleural surface. A 19- gauge catheter-covered needle was then introduced into the pleural space, the catheter was advanced and the needle was withdrawn, and thereafter pleural fluid was aspirated. The catheter was then removed and a dressing was applied. COMPARISON: None. FINDINGS: Access site: Left hemithorax. Needle: One-Step centesis catheter with introducer needle. Fluid volume and description: 2000 cc of serous fluid Fluid sent for diagnostic testing: Not requested Medications: 1% lidocaine for local anaesthesia. Complications: None; post-procedural chest radiograph is pending to assess for pneumothorax. IMPRESSION: Successful ultrasound-guided thoracentesis. Dictated by: Lloyd Sexton M.D. on 06/16/2018 at 17:53 Approved by: Lloyd Sexton M.D. on 06/16/2018 at 17:53 [facility] Narrative Medical decision making narrative: patient feels tremendous relief in the aftermath of his ultrasound-guided thoracentesis as performed by Radiology. Follow-up chest x-ray suggest bibasilar pneumonia and as the result patient is given antibiotics for this. He is encouraged to follow up closely with his providers and even perhaps discuss the possibility of a drain being placed at a facility with interventional radiology Discharge Plan Departure Patient Disposition: Home Clinical Impression: Pleural effusion Community acquired pneumonia Qualifiers: Laterality: right Lung location: lower lobe of lung Qualified Code(s): J18.1 - Lobar pneumonia, unspecified organism Discharge Date/Time: 06/22/18 18:30 Interventions: ED Discharge Assessment Last Done: 06/22/18 18:45 Instructions: DI for Pneumonia -- Adult, DI for Pleural Effusion Activity Restrictions/Additional Instructions: *You have been diagnosed with [ large left pleural effusion, lower lobe pneumonia *What to do: *Take medications as directed: Her prescription has been electronically transmitted to [facility] in [place] a your request *Follow up with your primary care provider in 2-3 days, call for an appointment. Let them know you were seen in the Emergency Department and that we ask that you be seen in follow up *Return to ER if you should have any new, worsening or concerning symptoms Prescriptions: New amoxicillin-pot clavulanate [Augmentin] 875-125 mg tablet 1 tab PO BID Qty: 20 RF: 0 No Action Honvan tablet 120 mg PO .COMPLEX RF: 0 doxycycline monohydrate 100 mg tablet 100 mg PO DAILY RF: 0 Noxafil 100 mg tablet,delayed release (DR/EC) 100 mg PO TID RF: 0 sennosides-docusate sodium [Senna-S] 8.6-50 mg tablet 1 tab PO BID RF: 0 prednisone 5 mg tablet 10 mg PO DAILY RF: 0 tamsulosin 0.4 mg capsule 0.4 mg PO DAILY RF: 0 abiraterone [Zytiga] 250 mg tablet 1,000 mg PO DAILY RF: 0 morphine 15 mg tablet extended release 15 mg PO BID PRN (Reason: PAIN) RF: 0
== END 2018-06-22 18:30 | disposition home or self-care (01) ==
PROVIDERS: Emergency Provider Emergency Medicine; Family Provider Physician Assistant
DX: J18.1 Lobar pneumonia, unspecified organism (principal); J90 Pleural effusion, not elsewhere classified
CPT/HCPCS: 32555; 71045; 71046; 80053; 83605; 85025; 93005; 99283; 99285

== ENCOUNTER 2018-07-28 18:28 | Emergency (ER) | payer MEDICARE, OTHER, SELFPAY ==
[2018-07-28 18:49] VITALS: BP 113/65; PULSE 96; RESP 20; TEMP 37.1; O2SAT 97
--- NOTE | 2018-07-28 18:50 | DI.RAD.S_ITS ---
PROCEDURE: XR CHEST 2V INDICATIONS: Fever on chemotherapy TECHNIQUE: 2 views of the chest were acquired. COMPARISON: [facility], CR, XR CHEST 1V, 06/22/2018, 17:02. FINDINGS: Surgical changes and devices: Left Pleurx catheter present. Lungs and pleura: Minimal strandy parenchymal density at the left lung base, likely residual atelectasis. Small residual left pleural effusion. Probable trace right pleural effusion. No new consolidations. No pleural effusions or pneumothorax. Mediastinum: Mediastinal contours are normal. Heart size is obscured.. Bones and chest wall: No suspicious bony abnormalities. Soft tissues appear unremarkable. IMPRESSION: 1. Interval placement of left Pleurx catheter with decrease in size of left pleural effusion. There is a trace residual left effusion, likely chronic. 2. Mild parenchymal changes at left lung base are likely residual atelectasis. Underlying infection is not able to be excluded radiographically. Dictated by: Cherry Salmon M.D. on 07/28/2018 at 20:02 Approved by: Cherry Salmon M.D. on 07/28/2018 at 20:04
[2018-07-28 19:47] LABS: Hematocrit 26.3 % (41-53); Hemoglobin 8.6 g/dL (13.5-17.5); Mean Corpuscular HGB Conc 32.8 % (30-36); Mean Corpuscular Hemoglobin 29.9 PG (26-34); Mean Corpuscular Volume 91.2 fL (80-100); Platelet Count 211 X10^3/uL (150-400); Red Blood Cell Count 2.89 X10^6/uL (4.5-5.9); Red Cell Distribution Width 17.5 % (11.6-14.8); White Blood Cell Count 20.2 X10^3/uL (4.5-11.0)
[2018-07-28 19:49] LABS: Add Manual Diff / Slide Review YES
[2018-07-28 19:55] LABS: Lactate (Lactic Acid) 1.4 mmol/L (0.7-2.1)
[2018-07-28 19:56] LABS: Blood Urea Nitrogen 24 mg/dL (9-20); Calcium 7.4 mg/dL (8.4-10.2); Carbon Dioxide 22 mmol/L (22-32); Chloride 99 mmol/L (98-107); Estimated Glomerular Filt Rate > 60.0 mL/min (>60); Glucose 132 mg/dL (80-110); HEMOLYSIS < 15 (0-50); Potassium 4.1 mmol/L (3.4-5.1); Sodium 129 mmol/L (137-145)
[2018-07-28 20:16] LABS: Neutrophils Absolute Manual 16160 /uL (3000-5900); Poikilocytosis 1+; Total Cells Counted 100
[2018-07-28 20:17] LABS: Anisocytosis 1+
[2018-07-28 20:23] LABS: Procalcitonin 1.36 ng/mL (<0.5)
[2018-07-28 20:42] LABS: Influenza A and B by PCR Rapid Negative (Negative)
[2018-07-28 20:51] LABS: Appearance Urine UA CLOUDY; Bilirubin Urine UA NEGATIVE (NEGATIVE); Color Urine UA YELLOW; Glucose Urine UA NEGATIVE (Negative); Ketones Urine UA NEGATIVE (NEGATIVE); Leukocyte Esterase Urine UA 3+ (NEGATIVE); Nitrite Urine UA NEGATIVE (Negative); Occult Blood Urine UA 3+ (Negative); Protein Urine UA 2+ (Negative); Urobilinogen Urine UA 0.2 E.U./dL (0.2)
[2018-07-28 21:05] LABS: Bacteria Urine Many (>30); RBC Urine 10-30/HPF (0-5/HPF); Squamous Epithelial Cell Urine None Seen; WBC Urine >100/HPF (0-5/HPF)
[2018-07-28 21:06] LABS: Culture Indicated Urine Specimen Cultured
--- NOTE | 2018-07-28 21:50 | ED_ITS ---
HPI - Fever <MONIQUE Rene - Last Filed: 07/28/18 22:48> General Chief Complaint: Fever Stated Complaint: chemo patient, has a fever, told to be seen Time Seen by Provider: 07/28/18 19:29 Source: patient Mode of arrival: ambulatory Limitations: no limitations History of Present Illness HPI Narrative: 67-year-old male with history of a metastatic prostate cancer here for complaint of having fever earlier today. He states that he just recently got back from [place] where he had chemo treatment a few days ago. He at [facility] for his treatment. He denies any abdominal pain. He denies any urinary symptoms. No cough no nasal congestion. He is tolerating p.o. intake well. No nausea or vomiting. He denies any discomfort at this timeframe. No other concerns or complaints at this timeframe. complaint: fever Related Data Home Medications Medication Instructions Recorded Confirmed Honvan 120 mg PO .COMPLEX 04/09/18 06/22/18 abiraterone [Zytiga] 1,000 mg PO DAILY 06/16/18 06/22/18 doxycycline monohydrate 100 mg PO DAILY 06/16/18 06/22/18 posaconazole [Noxafil] 100 mg PO TID 06/16/18 06/22/18 prednisone 10 mg PO DAILY 06/16/18 06/22/18 sennosides-docusate sodium 1 tab PO BID 06/16/18 06/22/18 [Senna-S] tamsulosin 0.4 mg PO DAILY 06/16/18 06/22/18 morphine 15 mg PO BID PRN 06/22/18 06/22/18 Previous Rx's Medication Instructions Recorded amoxicillin-pot clavulanate 1 tab PO BID #20 tab 06/22/18 [Augmentin] ciprofloxacin HCl 500 mg PO BID #14 tab 07/28/18 Allergies Allergy/AdvReac Type Severity Reaction Status Date / Time No Known Drug Allergies Allergy Verified 06/22/18 13:01 Review of Systems <MONIQUE Rene - Last Filed: 07/28/18 22:48> Constitutional Reports fever(s) and Denies frequent falls ENT Ears, Nose, Mouth, and Throat: Denies change in voice, Denies dizziness, Denies neck pain and Denies sore throat Cardiovascular Denies chest pain, Denies irregular heart rhythm, Denies lightheadedness, Denies palpitations, Denies dyspnea, Denies dyspnea on exertion and Denies orthopnea Respiratory Denies cough, Denies dyspnea, Denies dyspnea on exertion and Denies wheezing Genitourinary Denies hematuria, Denies flank pain, Denies urinary incontinence and Denies urinary urgency Musculoskeletal Denies neck pain and Denies numbness Integumentary/Breasts Denies pruritus, Denies erythema, Denies rash and Denies wounds Neurologic Denies behavioral changes, Denies confusion, Denies dizziness, Denies frequent falls and Denies numbness Psychiatric Denies behavioral changes and Denies confusion Endocrine Denies palpitations Hematologic/Lymphatic Denies easy bruising Allergic/Immunologic Denies wheezing PFSH <MONIQUE Rene - Last Filed: 07/28/18 22:48> Medical History Prostate cancer (Acute) Surgical History S/P ureteral stent placement (Acute) Social History Smoking Status: Never smoker Social History Smoking Status: Never smoker Exam <MONIQUE Rene - Last Filed: 07/28/18 22:48> Initial Vital Signs Initial Vital Signs: Vital Signs Temperature 98.7 F 07/28/18 18:49 Pulse Rate 96 H 07/28/18 18:49 Respiratory Rate 20 07/28/18 18:49 Blood Pressure 113/65 07/28/18 18:49 Pulse Oximetry 97 07/28/18 18:49 Const General: cooperative and well developed Nutritional Appearance: well nourished Orientation: alert, awake, oriented x3 and not confused HENHI Mouth: oral mucosae normal and moist mucous membranes Throat: posterior oropharynx normal Eyes Conjunctivae: conjunctivae normal Sclera: sclerae normal Pupils: PERRL EOM: EOM intact bilaterally Chest Chest: normal inspection of the chest Resp Effort & Inspection: normal respiratory effort, able to speak in complete sentences, no respiratory distress and no use of accessory muscles Auscultation: clear to auscultation bilaterally, no rales, no rhonchi and no wheezes Cardio Rate: regular rate Rhythm: regular rhythm Heart Sounds: no click, no gallops, no murmurs and no rubs Pulses: normal peripheral pulses GI Inspection: non-distended Palpation: soft, no hepatosplenomegaly, No guarding, No pulsatile mass and No tender Auscultation: normal bowel sounds General: No CVA tenderness Skin General: no rashes or lesions noted, No jaundice and No petechiae Neuro General: alert, oriented x3, gait normal and no focal motor deficits Speech: speech normal <Antonio Murphy DO - Last Filed: 07/29/18 01:43> Initial Vital Signs Initial Vital Signs: Vital Signs Temperature 98.7 F 07/28/18 18:49 Pulse Rate 96 H 07/28/18 18:49 Respiratory Rate 20 07/28/18 18:49 Blood Pressure 113/65 07/28/18 18:49 Pulse Oximetry 97 07/28/18 18:49 Course <MONIQUE Rene - Last Filed: 07/28/18 22:48> Orders Ordered: ED Orders 07/28/18 18:49 Blood Culture Stat 07/28/18 18:50 XR chest 2V Stat 07/28/18 19:35 Basic Metabolic Panel Stat Complete Blood Count AUTO DIFF Stat Lactate (Lactic Acid) Stat Procalcitonin Stat 07/28/18 20:20 Influenza A and B by PCR Rapid Stat 07/28/18 20:35 Urinalysis and Microscopic Stat Urine Culture Stat Discontinued Medications Ceftriaxone Sodium (Rocephin) 1,000 mg IM NOW ONE Stop: 07/28/18 21:42 Last Admin: 07/28/18 21:55 Dose: 1,000 mg Vital Signs - 8 hr 07/28/18 18:49 07/28/18 22:16 Temperature 98.7 F 98.8 F Pulse Rate 96 H 95 H Respiratory Rate 20 20 Blood Pressure 113/65 130/82 Pulse Oximetry 97 97 <Antonio Murphy DO - Last Filed: 07/29/18 01:43> Orders Ordered: ED Orders 07/28/18 18:49 Blood Culture Stat 07/28/18 18:50 XR chest 2V Stat 07/28/18 19:35 Basic Metabolic Panel Stat Complete Blood Count AUTO DIFF Stat Lactate (Lactic Acid) Stat Procalcitonin Stat 07/28/18 20:20 Influenza A and B by PCR Rapid Stat 07/28/18 20:35 Urinalysis and Microscopic Stat Urine Culture Stat Discontinued Medications Ceftriaxone Sodium (Rocephin) 1,000 mg IM NOW ONE Stop: 07/28/18 21:42 Last Admin: 07/28/18 21:55 Dose: 1,000 mg Vital Signs - 8 hr 07/28/18 18:49 07/28/18 22:16 Temperature 98.7 F 98.8 F Pulse Rate 96 H 95 H Respiratory Rate 20 20 Blood Pressure 113/65 130/82 Pulse Oximetry 97 97 MDM - Fever <MONIQUE Rene - Last Filed: 07/28/18 22:48> Lab Data Result diagrams: 07/28/18 19:35 07/28/18 19:35 Lab Results 07/28/18 07/28/18 07/28/18 Range/Units 19:35 19:35 19:35 WBC 20.2 H (4.5-11.0) X10^3/uL RBC 2.89 L (4.5-5.9) X10^6/uL Hgb 8.6 L (13.5-17.5) g/dL Hct 26.3 L (41-53) % MCV 91.2 (80-100) fL MCH 29.9 (26-34) PG MCHC 32.8 (30-36) % RDW 17.5 H (11.6-14.8) % Plt Count 211 (150-400) X10^3/uL Neut % (Auto) Not Reportable Lymph % (Auto) Not Reportable [place] % (Auto) Not Reportable Eos % (Auto) Not Reportable Baso % (Auto) Not Reportable Lymph # (Auto) Not Reportable [place] # (Auto) Not Reportable Baso # (Auto) Not Reportable Total Counted 100 Seg Neutrophils % 63.0 (38-70) % Band Neutrophils % 17.0 H (3-7) % Lymphocytes % (Manual) 14.0 L (25-45) % Monocytes % (Manual) 6.0 (2-11) % Eosinophils % (Manual) 0.0 L (2-4) % Basophils % (Manual) 0.0 (0-1) % Neutrophils # (Manual) 27897 H (6878-4483) /uL RBC Morphology Not Reportable Poikilocytosis 1+ H Anisocytosis 1+ H Sodium 129 L (137-145) mmol/L Potassium 4.1 (3.4-5.1) mmol/L Chloride 99 (98-107) mmol/L Carbon Dioxide 22 (22-32) mmol/L BUN 24 H (9-20) mg/dL Creatinine 1.00 (0.66-1.25) mg/dL Estimated GFR > 60.0 (>60) mL/min BUN/Creatinine Ratio 24.0 H (6-22) Glucose 132 H (80-110) mg/dL Lactate (0.7-2.1) mmol/L Calcium 7.4 L (8.4-10.2) mg/dL Procalcitonin 1.36 H (<0.5) ng/mL Urine Color Urine Appearance Urine pH (4.5-8.0) Ur Specific [place] (1.000-1.035) Urine Protein (Negative) Urine Glucose (UA) (Negative) g/dL Urine Ketones (NEGATIVE) Urine Occult Blood (Negative) Urine Nitrate (Negative) Urine Bilirubin (NEGATIVE) Urine Urobilinogen (0.2) E.U./dL Ur Leukocyte Esterase (NEGATIVE) Urine RBC (0-5/HPF) Urine WBC (0-5/HPF) Ur Squamous Epith Cells Urine Bacteria (None) Ur Culture Indicated? Influenza A & B (PCR) (Negative) 07/28/18 07/28/18 07/28/18 Range/Units 19:35 20:20 20:35 WBC (4.5-11.0) X10^3/uL RBC (4.5-5.9) X10^6/uL Hgb (13.5-17.5) g/dL Hct (41-53) % MCV (80-100) fL MCH (26-34) PG MCHC (30-36) % RDW (11.6-14.8) % Plt Count (150-400) X10^3/uL Neut % (Auto) Lymph % (Auto) [place] % (Auto) Eos % (Auto) Baso % (Auto) Lymph # (Auto) [place] # (Auto) Baso # (Auto) Total Counted Seg Neutrophils % (38-70) % Band Neutrophils % (3-7) % Lymphocytes % (Manual) (25-45) % Monocytes % (Manual) (2-11) % Eosinophils % (Manual) (2-4) % Basophils % (Manual) (0-1) % Neutrophils # (Manual) (3768-1547) /uL RBC Morphology Poikilocytosis Anisocytosis Sodium (137-145) mmol/L Potassium (3.4-5.1) mmol/L Chloride (98-107) mmol/L Carbon Dioxide (22-32) mmol/L BUN (9-20) mg/dL Creatinine (0.66-1.25) mg/dL Estimated GFR (>60) mL/min BUN/Creatinine Ratio (6-22) Glucose (80-110) mg/dL Lactate 1.4 (0.7-2.1) mmol/L Calcium (8.4-10.2) mg/dL Procalcitonin (<0.5) ng/mL Urine Color Yellow Urine Appearance Cloudy Urine pH 6.0 (4.5-8.0) Ur Specific [place] 1.020 (1.000-1.035) Urine Protein 2+ H (Negative) Urine Glucose (UA) Negative (Negative) g/dL Urine Ketones Negative (NEGATIVE) Urine Occult Blood 3+ H (Negative) Urine Nitrate Negative (Negative) Urine Bilirubin Negative (NEGATIVE) Urine Urobilinogen 0.2 (0.2) E.U./dL Ur Leukocyte Esterase 3+ H (NEGATIVE) Urine RBC 10-30/hpf H (0-5/HPF) Urine WBC >100/hpf H (0-5/HPF) Ur Squamous Epith Cells None seen Urine Bacteria Many (>30) H (None) Ur Culture Indicated? Specimen cultured Influenza A & B (PCR) Negative (Negative) MDM Narrative Medical decision making narrative: CBC shows elevated white count of 20 kg. H&H shows 8.6 and 26.3 respectively this is consistent with his prior lab values. neutrophils are also elevated sodium is decreased to 129. He has a history of having hyponatremia. He is instructed to eat adequate diet. Calcium was also shown low at 7.4 procalcitonin was elevated at 1.36. Lactate was unremarkable. Urinalysis indicates urinary tract infection. He is placed on ciprofloxacin he was given Rocephin 1 g in the emergency room. Plenty of fluids. Follow up with primary care provider next couple days for re-evaluation. For any worsening symptoms return to the emergency room. Vital signs were stable here in the emergency room <Antonio Murphy - Last Filed: 07/29/18 01:43> Lab Data Lab Results 07/28/18 07/28/18 07/28/18 Range/Units 19:35 19:35 19:35 WBC 20.2 H (4.5-11.0) X10^3/uL RBC 2.89 L (4.5-5.9) X10^6/uL Hgb 8.6 L (13.5-17.5) g/dL Hct 26.3 L (41-53) % MCV 91.2 (80-100) fL MCH 29.9 (26-34) PG MCHC 32.8 (30-36) % RDW 17.5 H (11.6-14.8) % Plt Count 211 (150-400) X10^3/uL Neut % (Auto) Not Reportable Lymph % (Auto) Not Reportable [place] % (Auto) Not Reportable Eos % (Auto) Not Reportable Baso % (Auto) Not Reportable Lymph # (Auto) Not Reportable [place] # (Auto) Not Reportable Baso # (Auto) Not Reportable Total Counted 100 Seg Neutrophils % 63.0 (38-70) % Band Neutrophils % 17.0 H (3-7) % Lymphocytes % (Manual) 14.0 L (25-45) % Monocytes % (Manual) 6.0 (2-11) % Eosinophils % (Manual) 0.0 L (2-4) % Basophils % (Manual) 0.0 (0-1) % Neutrophils # (Manual) 45215 H (5354-6735) /uL RBC Morphology Not Reportable Poikilocytosis 1+ H Anisocytosis 1+ H Sodium 129 L (137-145) mmol/L Potassium 4.1 (3.4-5.1) mmol/L Chloride 99 (98-107) mmol/L Carbon Dioxide 22 (22-32) mmol/L BUN 24 H (9-20) mg/dL Creatinine 1.00 (0.66-1.25) mg/dL Estimated GFR > 60.0 (>60) mL/min BUN/Creatinine Ratio 24.0 H (6-22) Glucose 132 H (80-110) mg/dL Lactate (0.7-2.1) mmol/L Calcium 7.4 L (8.4-10.2) mg/dL Procalcitonin 1.36 H (<0.5) ng/mL Urine Color Urine Appearance Urine pH (4.5-8.0) Ur Specific [place] (1.000-1.035) Urine Protein (Negative) Urine Glucose (UA) (Negative) g/dL Urine Ketones (NEGATIVE) Urine Occult Blood (Negative) Urine Nitrate (Negative) Urine Bilirubin (NEGATIVE) Urine Urobilinogen (0.2) E.U./dL Ur Leukocyte Esterase (NEGATIVE) Urine RBC (0-5/HPF) Urine WBC (0-5/HPF) Ur Squamous Epith Cells Urine Bacteria (None) Ur Culture Indicated? Influenza A & B (PCR) (Negative) 07/28/18 07/28/18 07/28/18 Range/Units 19:35 20:20 20:35 WBC (4.5-11.0) X10^3/uL RBC (4.5-5.9) X10^6/uL Hgb (13.5-17.5) g/dL Hct (41-53) % MCV (80-100) fL MCH (26-34) PG MCHC (30-36) % RDW (11.6-14.8) % Plt Count (150-400) X10^3/uL Neut % (Auto) Lymph % (Auto) [place] % (Auto) Eos % (Auto) Baso % (Auto) Lymph # (Auto) [place] # (Auto) Baso # (Auto) Total Counted Seg Neutrophils % (38-70) % Band Neutrophils % (3-7) % Lymphocytes % (Manual) (25-45) % Monocytes % (Manual) (2-11) % Eosinophils % (Manual) (2-4) % Basophils % (Manual) (0-1) % Neutrophils # (Manual) (3770-1755) /uL RBC Morphology Poikilocytosis Anisocytosis Sodium (137-145) mmol/L Potassium (3.4-5.1) mmol/L Chloride (98-107) mmol/L Carbon Dioxide (22-32) mmol/L BUN (9-20) mg/dL Creatinine (0.66-1.25) mg/dL Estimated GFR (>60) mL/min BUN/Creatinine Ratio (6-22) Glucose (80-110) mg/dL Lactate 1.4 (0.7-2.1) mmol/L Calcium (8.4-10.2) mg/dL Procalcitonin (<0.5) ng/mL Urine Color Yellow Urine Appearance Cloudy Urine pH 6.0 (4.5-8.0) Ur Specific [place] 1.020 (1.000-1.035) Urine Protein 2+ H (Negative) Urine Glucose (UA) Negative (Negative) g/dL Urine Ketones Negative (NEGATIVE) Urine Occult Blood 3+ H (Negative) Urine Nitrate Negative (Negative) Urine Bilirubin Negative (NEGATIVE) Urine Urobilinogen 0.2 (0.2) E.U./dL Ur Leukocyte Esterase 3+ H (NEGATIVE) Urine RBC 10-30/hpf H (0-5/HPF) Urine WBC >100/hpf H (0-5/HPF) Ur Squamous Epith Cells None seen Urine Bacteria Many (>30) H (None) Ur Culture Indicated? Specimen cultured Influenza A & B (PCR) Negative (Negative) Discharge Plan Departure Patient Disposition: Home Clinical Impression: Urinary tract infection Qualifiers: Urinary tract infection type: acute cystitis Hematuria presence: without hematuria Qualified Code(s): N30.00 - Acute cystitis without hematuria Discharge Date/Time: 07/28/18 22:16 Interventions: ED Discharge Assessment Last Done: 07/28/18 22:16 Instructions: DI for Urinary Tract Infection (UTI) Activity Restrictions/Additional Instructions: Laboratory results indicate urinary tract infection. Your placed on antibiotics use as directed. Laboratory works also show that your sodium and calcium are low. Ensure your drinking an adequate amount of fluid in eating a adequate diet. Follow up with primary care provider in the next couple days for re- evaluation. For any worsening symptoms return to the emergency room. Prescriptions: New ciprofloxacin HCl 500 mg tablet 500 mg PO BID Qty: 14 RF: 0 No Action Honvan tablet 120 mg PO .COMPLEX RF: 0 doxycycline monohydrate 100 mg tablet 100 mg PO DAILY RF: 0 Noxafil 100 mg tablet,delayed release (DR/EC) 100 mg PO TID RF: 0 sennosides-docusate sodium [Senna-S] 8.6-50 mg tablet 1 tab PO BID RF: 0 prednisone 5 mg tablet 10 mg PO DAILY RF: 0 tamsulosin 0.4 mg capsule 0.4 mg PO DAILY RF: 0 abiraterone [Zytiga] 250 mg tablet 1,000 mg PO DAILY RF: 0 morphine 15 mg tablet extended release 15 mg PO BID PRN (Reason: PAIN) RF: 0 amoxicillin-pot clavulanate [Augmentin] 875-125 mg tablet 1 tab PO BID Qty: 20 RF: 0 Referrals: [facility] [Provider Group] <Antonio Murphy DO - Last Filed: 07/29/18 01:43> Cosign ED Attending Arcenio Attestation: I was available for consultation during this patient's emergency department encounter
[2018-07-28] MEDS: cefTRIAXone 2,000 MG VIAL 1000 MG IM (21:55)
[2018-07-28 22:16] VITALS: BP 130/82; PULSE 95; RESP 20; TEMP 37.1; O2SAT 97
== END 2018-07-28 22:16 | disposition home or self-care (01) ==
PROVIDERS: Emergency Medicine; Emergency Provider Nurse Practitioner Family; Family Provider Physician Assistant
DX: N30.00 Acute cystitis without hematuria (principal)
CPT/HCPCS: 71046; 80048; 81001; 83605; 84145; 85025; 87040; 87077; 87086; 87186; 87400; 96372; 99282; 99284; J0696

== ENCOUNTER → 2018-08-04 14:05 | Outpatient (REF) | payer MEDICARE, OTHER, SELFPAY ==
[2018-08-04 14:23] LABS: Hemoglobin 7.4 g/dL (13.5-17.5); Mean Corpuscular Hemoglobin 29.4 PG (26-34); Mean Corpuscular Volume 91.9 fL (80-100); Platelet Count 255 X10^3/uL (150-400); Red Cell Distribution Width 17.9 % (11.6-14.8)
[2018-08-04 14:34] LABS: White Blood Cell Count 59.5 X10^3/uL (4.5-11.0)
[2018-08-04 14:52] LABS: Neutrophils Absolute Manual 52955 /uL (3000-5900); Total Cells Counted 100
[2018-08-04 14:53] LABS: Anisocytosis 2+; Poikilocytosis 1+
[2018-08-04 14:54] LABS: Microcytosis 1+
== END ==
LOC: LAB 14:05
PROVIDERS: Family Provider Physician Assistant; Visit Provider Family Medicine
DX: C61 Malignant neoplasm of prostate (principal)
CPT/HCPCS: 85027

== ENCOUNTER → 2018-08-07 13:51 | Outpatient (REF) | payer MEDICARE, OTHER, SELFPAY ==
[2018-08-07 14:28] LABS: Hematocrit 23.1 % (41-53); Hemoglobin 7.2 g/dL (13.5-17.5); Mean Corpuscular HGB Conc 31.1 % (30-36); Mean Corpuscular Hemoglobin 29.5 PG (26-34); Mean Corpuscular Volume 94.7 fL (80-100); Platelet Count 205 X10^3/uL (150-400); Red Blood Cell Count 2.44 X10^6/uL (4.5-5.9); Red Cell Distribution Width 17.9 % (11.6-14.8)
[2018-08-07 14:38] LABS: Add Manual Diff / Slide Review YES; White Blood Cell Count 44.5 X10^3/uL (4.5-11.0)
[2018-08-07 15:04] LABS: Anisocytosis 2+; Hypochromasia 1+; Neutrophils Absolute Manual 36490 /uL (3000-5900); Nucleated Red Blood Cells 2 #/Diff; Polychromasia 1+; Total Cells Counted 100
[2018-08-07 15:05] LABS: Poikilocytosis 1+
== END ==
LOC: LAB 13:51
PROVIDERS: Family Provider Physician Assistant; Visit Provider Family Medicine
DX: D64.9 Anemia, unspecified (principal)
CPT/HCPCS: 85025

== ENCOUNTER → 2018-08-11 11:19 | Outpatient (REF) | payer MEDICARE, OTHER, SELFPAY ==
[2018-08-11 11:43] LABS: Hematocrit 23.1 % (41-53); Hemoglobin 7.2 g/dL (13.5-17.5); Mean Corpuscular HGB Conc 31.2 % (30-36); Mean Corpuscular Hemoglobin 29.3 PG (26-34); Mean Corpuscular Volume 93.9 fL (80-100); Platelet Count 197 X10^3/uL (150-400); Red Blood Cell Count 2.46 X10^6/uL (4.5-5.9); Red Cell Distribution Width 17.9 % (11.6-14.8)
[2018-08-11 11:48] LABS: White Blood Cell Count 45.9 X10^3/uL (4.5-11.0)
[2018-08-11 11:49] LABS: Add Manual Diff / Slide Review YES
[2018-08-11 12:44] LABS: Neutrophils Absolute Manual 38097 /uL (3000-5900); Nucleated Red Blood Cells 5 #/Diff; Total Cells Counted 100
[2018-08-11 12:52] LABS: Polychromasia 1+
[2018-08-11 12:53] LABS: Toxic Granulation Present
== END ==
LOC: LAB 11:19
PROVIDERS: Family Provider Physician Assistant; Visit Provider Family Medicine
DX: D64.9 Anemia, unspecified (principal)
CPT/HCPCS: 85025